=== PATIENT | female | born 1930 | race Caucasian/White ===

== ENCOUNTER 2021-03-20 08:09 | Inpatient (IN) ==
[2021-03-20] MEDS ORDERED: Isovue-370 500 ML BOTTLE IVP ONE ×2 (10:45→10:55)
[2021-03-20] MEDS ORDERED: FentaNYL (PF) 1,000 MCG/100 ML IV.SOLN IVC SCH ×2 (10:45→11:00)
[2021-03-20] MEDS ORDERED: Artificial Tears SOLN 15 ML BOTTLE BOTH EYES PRN (10:55)
[2021-03-20] MEDS ORDERED: Naloxone 0.4 MG/ML INJ IVP PRN (10:55)
[2021-03-20] MEDS ORDERED: Norepinephrine 4 MG/254 ML IV.SOLN IVC SCH (11:00)
[2021-03-20] MEDS ORDERED: Vasopressin 40 UNIT in D5% in Water 100 ML IVC SCH (11:00)
[2021-03-20] MEDS ORDERED: Phenylephrine 10 MG in 0.9 % Sodium Chloride 250 ML IVC SCH (11:00)
[2021-03-20] MEDS ORDERED: Pantoprazole 40 MG VIAL IVP SCH (11:00)
[2021-03-20] MEDS ORDERED: Sodium Bicarbonate 150 MEQ in Water for inj. (sterile) 1,000 ML IVC SCH (11:02)
[2021-03-20] MEDS ORDERED: Perflutren Lipid Microsphere 1.3 ML in 0.9 % Sodium Chloride 8.7 ML IVP PRN (11:11)
[2021-03-20] MEDS ORDERED: Heparin 25,000UNIT/250ML 1/2NS 25,000 UNIT/250 ML IV.SOLN IVC SCH ×2 (11:15→13:30)
[2021-03-20] MEDS ORDERED: *HR* Heparin 5,000 UNIT/ML VIAL IVP PRN ×4 (11:15→13:23)
[2021-03-20 11:57] LABS: VBG Ionized Calcium 0.98 mmol/L (1.15-1.35)
[2021-03-20] MEDS ORDERED: Artificial Tears SOLN 15 ML BOTTLE BOTH EYES SCH (12:00)
[2021-03-20] MEDS ORDERED: Hydrocortisone Sodium Succ 100 MG/2 ML VIAL IVP SCH (12:00)
[2021-03-20 12:04] LABS: Hemoglobin 10.3 g/dL (11.5-15.4)
[2021-03-20] MEDS ORDERED: Albuterol 2.5 MG/3 ML NEBULIZER IH PRN (12:04)
[2021-03-20 12:05] LABS: Mean Corpuscular HGB Conc 31.2 g/dL (31.6-35.5); Mean Corpuscular Hemoglobin 31.4 pg (28.0-33.3); Mean Corpuscular Volume 100.6 fL (83.0-100.0); Mean Platelet Volume 9.6 fL (9.4-12.4); Platelet Count 255 K/mcL (140-400); Red Blood Count 3.28 M/mcL (3.82-4.97); Red Cell Distribution Width 14.7 % (11.5-14.5); White Blood Count 29.4 K/mcL (4.3-11.1)
[2021-03-20 12:30] VITALS: TEMP 95.9
[2021-03-20] MEDS ORDERED: Calcium Gluconate 1gm/50mL 1 GM/50 ML BAG IVPB SCH (12:30)
[2021-03-20 12:31] LABS: Albumin 2.3 g/dL (3.5-5.7); Albumin/Globulin Ratio 0.9 (1.1-2.2); Bilirubin,Direct 0.4 mg/dL (0.0-0.2); Bilirubin,Indirect 0.3 mg/dL (0.0-1.0); Bilirubin,Total 0.7 mg/dL (0.3-1.0); Calcium 6.7 mg/dL (8.6-10.3); Globulin 2.5 g/dL (2.4-3.5); Magnesium 1.4 mg/dL (1.6-2.6); Total Protein 4.8 g/dL (6.4-8.9)
[2021-03-20 12:38] LABS: INR 14.3; Prothrombin Time 153.7 Seconds (9.4-12.1)
[2021-03-20 12:39] LABS: Heparin anti-factor XA UFH > 2.00 IU/mL (0.30-0.70)
[2021-03-20 12:45] LABS: Lymphocytes # 1.5 K/mcL (0.6-4.6); Monocytes # 0.9 K/mcL (0.0-1.3); Neutrophils # 26.8 K/mcL (1.6-8.9); Platelet Estimate Normal (Normal)
[2021-03-20 12:54] LABS: Bilirubin,Urine Negative (Negative); Blood,Urine Large (Negative); Clarity,Urine Ex.Turbid (Clear); Color,Urine Yellow (Yellow); Glucose,Urine (UA) 100 mg/dL (Normal); Ketones,Urine Negative (Negative); Leukocyte Esterase,Urine Large (Negative); Nitrite,Urine Negative (Negative); Protein,Urine 100 mg/dL (Neg-Trace); Specific Gravity,Urine 1.027 (1.010-1.025); Urobilinogen,Urine Normal (Normal)
[2021-03-20 12:57] LABS: Troponin I 62.02 ng/mL (< 0.04)
[2021-03-20] MEDS ORDERED: Phenylephrine 50 MG in 0.9 % Sodium Chloride 250 ML IVC SCH (13:00)
[2021-03-20] MEDS ORDERED: Norepinephrine 16 MG in 0.9 % Sodium Chloride 500 ML IVC SCH (13:00)
[2021-03-20 13:01] LABS: Adenovirus Not Detected (Not Detect); Bordetella Pertussis Not Detected (Not Detect); Chlamydophila pneumoniae Not Detected (Not Detect); Coronavirus 229E Not Detected (Not Detect); Coronavirus HKU1 Not Detected (Not Detect); Coronavirus NL63 Not Detected (Not Detect); Coronavirus OC43 Not Detected (Not Detect); Human Metapneumovirus Not Detected (Not Detect); Human Rhinovirus/Enterovirus Not Detected (Not Detect); Influenza A Subtype 2009 H1 Not Detected (Not Detect); Influenza B Not Detected (Not Detect); Mycoplasma pneumoniae Not Detected (Not Detect); Parainfluenza Virus 1 Not Detected (Not Detect); Parainfluenza Virus 2 Not Detected (Not Detect); Parainfluenza Virus 3 Not Detected (Not Detect); Parainfluenza Virus 4 Not Detected (Not Detect); Respiratory Syncytial Virus Not Detected (Not Detect); SARS-CoV-2 Not Detected (Not Detect)
[2021-03-20 13:05] VITALS: O2SAT 98
[2021-03-20 13:27] LABS: Squamous Epithelial Cell,Urine Few per hpf (None-Few); Transitional Epi Cells,Urine Few per hpf (None-Few)
[2021-03-20 13:28] LABS: Amorphous Sediment,Urine Few per hpf (None-Few); Bacteria,Urine Moderate per hpf (None-Few); Granular Casts,Urine Few per lpf (None Seen); RBC,Urine TNTC per hpf (0-3); WBC,Urine TNTC per hpf (0-3)
[2021-03-20] MEDS ORDERED: 0.9 % Sodium Chloride 500 ML IVC ONE (13:40)
[2021-03-20] MEDS ORDERED: Scopolamine Patch 1.5 MG PATCH.TD72 TD ONE (13:46)
[2021-03-20] MEDS ORDERED: *HR* LORazepam 2 MG/ML VIAL IVP PRN (13:46)
[2021-03-20 13:53] LABS: INR 4.3
[2021-03-20 13:55] LABS: Prothrombin Time 47.7 Seconds (9.4-12.1)
[2021-03-20 13:56] VITALS: BP 72/48; PULSE 67
[2021-03-20] MEDS ORDERED: Ipratropium/Albuterol Neb 3 ML IH SCH (16:00)
[2021-03-20] MEDS ORDERED: Piperacillin/Tazobactam 3.375 GM in 0.9 % Sodium Chloride Mini Bag 100 ML IVPB SCH (16:00)
[2021-03-20] MEDS ORDERED: Chlorhexidine Rinse 15 ML MOUTHWASH MM SCH (21:00)
== END 2021-03-20 16:26 | disposition expired | DRG 871 ==
LOC: ICNU 11:56
PROVIDERS: ADMIT Pediatrics; ATTEND Pediatrics